=== PATIENT | male | born 1975 | race Two or more races ===

== ENCOUNTER 2025-09-22 04:41 | Emergency (ER) | payer OTHER, SELFPAY ==
[2025-09-22 04:49] VITALS: BP 132/88
[2025-09-22 04:58] VITALS: BMI 26.3
[2025-09-22 05:00] VITALS: BP 125/80
[2025-09-22 05:25] LABS: Hematocrit 42.4 % (39.0-52.0); Hemoglobin 13.9 g/dL (13.0-18.0); Mean Corp Hgb Conc. 32.8 g/dL (33.0-37.0); Mean Corpuscular Volume 88.7 fL (80.0-94.0); Nucleated Red Blood Cells % 0 % (-); Platelet Count 339 10^3/uL (130-400); Red Cell Dist. Width 12.7 % (11.5-14.5)
[2025-09-22] MEDS: TORADOL 15 MG IV (05:37)
[2025-09-22] MEDS: NSS 500 IV (05:38)
[2025-09-22 05:45] LABS: Urine Character Slightly Cloudy (Clear)
[2025-09-22 05:50] LABS: ALT (SGPT) 49 U/L (0-50); AST (SGOT) 28 U/L (17-59); Albumin 4.8 g/dl (3.5-5.0); Alkaline Phosphatase 61 U/L (38-126); Blood Urea Nitrogen 13 mg/dl (9-20); Calcium 10.0 mg/dl (8.4-10.2); Carbon Dioxide 28 mmol/L (22-30); Chloride 98 mmol/L (98-107); Estimated Creatinine Clearance 94 ml/min; Glucose 171 mg/dl (70-99); Potassium 4.4 mmol/L (3.5-5.1); Sodium 138 mmol/L (135-145); Total Protein 7.4 g/dl (6.3-8.2); eGFR > 60.00
[2025-09-22 06:00] VITALS: BP 117/81
[2025-09-22 06:19] LABS: Urine Squamous Cell 16-20 /LPF (Few)
[2025-09-22 06:20] LABS: Urine Red Blood Cell 0-2 /HPF (0-2)
--- NOTE | 2025-09-22 06:42 | ED.GENMED ---
History of Present Illness
<Debbi Fontenot PA-C - Last Filed: 09/22/25 14:18>
General
Chief Complaint: Abdominal Pain
Time Seen by Provider: 09/22/25 05:00
<Debi Padilla PA-C - Last Filed: 09/22/25 08:47>
General
Source: patient
Exam Limitations: none
Nursing documentation reviewed up to this point in time: agreed with
History of Present Illness
History of Present Illness:
Note:
CHIEF COMPLAINT(S)
Abdominal pain and pelvic discomfort.
HISTORY OF PRESENT ILLNESS
The patient is a 50-year-old male with pmh of diverticulitis, GERD, IBS, diabetes who presents with abdominal and pelvic discomfort the past few days. He notes a hx of bloating and diarrhea starting in July initially diagnosed as IBS. She
visited her primary care physician, who diagnosed and treated her for irritable bowel syndrome (IBS) due to symptoms of excessive gas and abdominal discomfort. The patient also experienced a workplace injury involving lifting a box shortly
thereafter, which temporarily resolved. The patient reports a recurrence of abdominal bloating and pressure two nights ago, with pain waking her up from sleep. The pressure is described as constant and was exacerbated by frequent bathroom visits at
work yesterday. Despite taking a dose of loperamide, symptoms persisted, specifically with pelvic muscle tension and pain. The patient reports urinary symptoms, attributed to secondary issues related to abdominal pain. She denies dysuria but
describes discomfort upon voiding and difficulty initiating a stream, which she associates with the abdominal pressure. He reports a prior history of diverticulitis 10 years ago but denies recent changes in her bowel habits aside from the episode
two nights ago. The patient has a history of taking dicyclomine for IBS, which caused constipation, prompting her to adjust her diet instead. Notably, she denies fever, vomiting, and recent diarrhea following symptom onset. There is an associated
back discomfort described as mild and recent anxiety reported surrounding the cause of her symptoms. The patient denies contact with anyone who is sick and reports no recent surgical history.
PAST MEDICAL AND SURGICAL HISTORY
No documented surgical history is noted. The patient has a past history of high blood pressure and was treated for irritable bowel syndrome.
CHRONIC MEDICAL CONDITIONS SIGNIFICANTLY AFFECTING CARE
The patient has a history of hypertension and IBS, with past instances of diverticulitis.
MEDICATIONS
The patient is currently taking lisinopril for hypertension. She has used dicyclomine previously for IBS management.
REVIEW OF SYSTEMS
- Gastrointestinal: Reports bloating, abdominal pressure, and discomfort.
- Genitourinary: Urinary discomfort, difficulty initiating a urine stream, no dysuria.
- Musculoskeletal: Some involvement with pelvic muscle tension.
- Constitutional: No fever, no vomiting. Anxiety related to uncertainty about symptoms.
PHYSICAL EXAM
General: Patient is well appearing and in no acute distress; non-toxic
Skin: Warm and dry, no rashes or lesions
Head: Normocephalic, atraumatic
Eyes: Sclera non-icteric. EOMs intact.
Cardiac: Regular rate and rhythm, no murmurs
Peripheral Vascular: No lower extremity swelling or edema
Pulm: Normal respiratory effort, no wheezes, rales, or rhonchi
Abdomen: Diffuse lower abdominal tenderness L>R, no palpable mass, normoactive bowel sounds
Neuro: CN II-XII intact, no focal neurologic deficits.
Psychiatric: Appropriate mood and affect.
PLAN
- A computed tomography (CT) scan to rule out diverticulitis flare or early appendicitis.
- Initiation of Toradol IV for pain management.
- Administration of IV fluids due to diminished oral intake and hydration status.
- Laboratory workup for comprehensive evaluation.
DIFFERENTIAL DIAGNOSIS
The Differential Diagnosis includes, in no particular order and is not limited to:
1. Diverticulitis
2. Appendicitis
3. Pelvic inflammatory disease
4. Urinary tract infection
5. Irritable bowel syndrome
6. Bowel obstruction
7. Gastroenteritis
8. Gastritis
9. Cystitis
10. Ovarian cyst
CHART REVIEW
Reviewed ER physician documentation from 12/27/2009 patient seen for chest pain and right upper quadrant pain
MDM/DISPOSITION
The patient is a 50-year-old male with pmh of diverticulitis, GERD, IBS, diabetes who presents with abdominal and pelvic discomfort the past few days. He notes a hx of bloating and diarrhea starting in July initially diagnosed as IBS. She
visited her primary care physician, who diagnosed and treated her for irritable bowel syndrome (IBS) due to symptoms of excessive gas and abdominal discomfort. He has associated diarrhea. The pain awoke him from sleep this evening. Suspect acute
diverticulitis. CT scan pending. Case signed out to Faby WILL pending CT scan. Anticipate discharge.
Past History
<Debbi Fontenot PA-C - Last Filed: 09/22/25 14:18>
Past History
ED Past Medical History: Negative Arrthythmia or CAD
ED Past Surgical History: Negative None
Social History
Tobacco: Former smoker
Alcohol: Occasional
Employment: Employed
Review of Systems
<Debi Padilla PA-C - Last Filed: 09/22/25 08:47>
Review of Systems
All Other Systems: ROS reviewed and negative except as documented in HPI and ROS
Phy Exam
<Debi Padilla PA-C - Last Filed: 09/22/25 08:47>
Physical Exam
Physical Exam:
General: Patient is well appearing and in no acute distress; non-toxic
Skin: Warm and dry, no rashes or lesions
Head: Normocephalic, atraumatic
Eyes: Sclera non-icteric. EOMs intact.
Cardiac: Regular rate and rhythm, no murmurs
Peripheral Vascular: No lower extremity swelling or edema
Pulm: Normal respiratory effort, no wheezes, rales, or rhonchi
Abdomen: Diffuse lower abdominal tenderness L>R, no palpable mass, normoactive bowel sounds
Neuro: CN II-XII intact, no focal neurologic deficits.
Psychiatric: Appropriate mood and affect.
Course
<Debbi Fontenot PA-C - Last Filed: 09/22/25 14:18>
Orders/Labs/Results
Orders:
Orders
09/22/25 05:09
Complete Blood Count/With Diff Urgent
Comprehensive Metabolic Panel Urgent
Urinalysis Reflex To Culture Urgent
Date Specimen was Collected: 09/22/25
Time Specimen was Collected: 05:04
Urine Microscopic Reflex Cult Urgent
Urine Culture Urgent
[facility] Source: U
Specimen Description:
Date Specimen was Collected: 09/22/25
Time Specimen was Collected: 05:04
09/22/25 05:22
CT Abd/pelvis W Iv Cont Urgent
Comment:
Reason For Exam: RLQ ab pain, pelvic pain
0.9% Sodium Chloride 500 ml [Nss] 500 ml IV BOLUS
Ketorolac [Toradol] 15 mg IV NOW STA
09/22/25 07:14
LevoFLOXacin [Levaquin] 750 mg PO NOW STA
MetroNIDAZOLE [Flagyl] 500 mg PO NOW STA
Abnormal Lab Results
09/22/25
05:09
WBC 17.1 H 10^3/uL
(4.8-10.8)
MCHC 32.8 L g/dL
(33.0-37.0)
Abs Immat Gran (auto) 0.1 H 10^3/uL
(0-0.05)
Absolute Neuts (auto) 12.8 H 10^3/uL
(1.4-6.5)
Absolute Monos (auto) 1.5 H 10^3/uL
(0.1-0.6)
Lymphocytes % 14.4 L %
(20.5-51.1)
Glucose 171 H mg/dl
(70-99)
Leukocyte Esterase Rfl 1+ A
(Negative)
Urine Bacteria (Reflex) Moderate A
(Negative)
Urine Albumin (Reflex) 2+ A
(Neg - Trace)
09/22/25 05:09
09/22/25 05:09
Vital Signs
Initial and Last Documented VS:
Initial Vital Signs
Temp Pulse Resp BP Pulse Ox
36.8 C 108 18 132/88 99
09/22/25 04:49 09/22/25 04:49 09/22/25 04:49 09/22/25 04:49 09/22/25 04:49
Last Documented Vital Signs
Temp Pulse Resp BP Pulse Ox
36.8 C 87 18 124/82 99
09/22/25 04:49 09/22/25 08:01 09/22/25 04:49 09/22/25 07:39 09/22/25 07:39
Rodlt;Debi Padilla PA-C - Last Filed: 09/22/25 08:47>
Orders/Labs/Results
Orders:
Orders
09/22/25 05:09
Complete Blood Count/With Diff Urgent
Comprehensive Metabolic Panel Urgent
Urinalysis Reflex To Culture Urgent
Date Specimen was Collected: 09/22/25
Time Specimen was Collected: 05:04
Urine Microscopic Reflex Cult Urgent
Urine Culture Urgent
[facility] Source: U
Specimen Description:
Date Specimen was Collected: 09/22/25
Time Specimen was Collected: 05:04
09/22/25 05:22
CT Abd/pelvis W Iv Cont Urgent
Comment:
Reason For Exam: RLQ ab pain, pelvic pain
0.9% Sodium Chloride 500 ml [Nss] 500 ml IV BOLUS
Ketorolac [Toradol] 15 mg IV NOW STA
09/22/25 07:14
LevoFLOXacin [Levaquin] 750 mg PO NOW STA
MetroNIDAZOLE [Flagyl] 500 mg PO NOW STA
Abnormal Lab Results
09/22/25
05:09
WBC 17.1 H 10^3/uL
(4.8-10.8)
MCHC 32.8 L g/dL
(33.0-37.0)
Abs Immat Gran (auto) 0.1 H 10^3/uL
(0-0.05)
Absolute Neuts (auto) 12.8 H 10^3/uL
(1.4-6.5)
Absolute Monos (auto) 1.5 H 10^3/uL
(0.1-0.6)
Lymphocytes % 14.4 L %
(20.5-51.1)
Glucose 171 H mg/dl
(70-99)
Leukocyte Esterase Rfl 1+ A
(Negative)
Urine Bacteria (Reflex) Moderate A
(Negative)
Urine Albumin (Reflex) 2+ A
(Neg - Trace)
09/22/25 05:09
09/22/25 05:09
Vital Signs
Initial and Last Documented VS:
Initial Vital Signs
Temp Pulse Resp BP Pulse Ox
36.8 C 108 18 132/88 99
09/22/25 04:49 09/22/25 04:49 09/22/25 04:49 09/22/25 04:49 09/22/25 04:49
Last Documented Vital Signs
Temp Pulse Resp BP Pulse Ox
36.8 C 87 18 124/82 99
09/22/25 04:49 09/22/25 08:01 09/22/25 04:49 09/22/25 07:39 09/22/25 07:39
<Debbi Fontenot PA-C - Last Filed: 09/22/25 14:18>
MDM/Problems Addressed
Differential Diagnosis Includes:
see MDM
MDM/Problems Addressed:
Note:
CHIEF COMPLAINT(S)
Progressive pain when breathing, worsening over the past week.
HISTORY OF PRESENT ILLNESS
This is a male 58 y/o M with history of hep C s/p treatment in remission, remote IVDA and more recent suspicious lesion liver concerning for HCC, h/o cirrhosis, here with R pleuritic pain x 1 week.
pt says he has pain with taking deep breaths but doesn't feel abdominal pain or tenderness, he has no HUGHES/exertional cp.
pt has never had PE
in past, He was treated with ledipasvir-sofosbuvir for hepatitis C and was cured. Two years ago, the patient was diagnosed with liver cancer and is not a candidate for transplantation. and at that time he stopped pursuing treatment.
He also reports smoking and has h/o divertic, but says this pain doesn't feel anything like that.
denies fever, confusion, vomiting, diarrhea, stool mitzi colored
PAST MEDICAL AND SURIGICAL HISTORY
The patient has a past medical history of diverticulitis and a history of hepatitis C, now cured. He also mentions diverticulitis leading to a severe episode almost perforating his colon two years ago but did not require surgery. He has a history of
knee surgery.
CHRONIC MEDICAL CONDITIONS SIGNIFICANTLY AFFECTING CARE
The patient�s medical history includes terminal liver cancer, diverticulitis, and previously hepatitis C infection.
SOCIAL DETERMINANTS AFFECTING HEALTH
The patient has a history of intravenous drug use at age 17, which led to acquiring hepatitis C. He currently smokes.
MEDICATIONS
The patient is on blood pressure medication, specifically lisinopril, but did not take it on the day of the visit.
REVIEW OF SYSTEMS
- Respiratory: Progressive pain with breathing over the past week.
- Gastrointestinal: Changes in stool consistency due to diverticulitis, history of hemorrhoids.
- Musculoskeletal: History of knee surgery.
PHYSICAL EXAM
GENERAL: Alert , in no apparent distress
EYE: pupils equal and reactive
NECK: Supple
ENT: o/p clr, mmm.
CARDIAC: Regular rate and rhythm .
LUNGS: Clear breath sounds bilaterally, no acute respiratory distress, no wheezes/rales/rhonchi
ABDOMEN: Soft, without focal tenderness, no r/g, no cvat, normal bowel sounds
Hepatomegaly without tenderness
NEUROLOGICAL: Alert and oriented, no focal neuro deficits
SKIN: Warm and dry, skin intact. Slightly jaundice abdomen
MUSCULOSKELETAL: No edema, well perfused. neg veronica's sign
PSYCH: Normal and appropriate interaction.
Nursing notes reviewed and vital signs reviewed. No significant tenderness upon examination.
PROBLEM LIST
Acute Problems:
- Severe pain exacerbated by deep breathing
Chronic Problems:
- Terminal liver cancer
- Diverticulitis
PLAN
The plan includes ordering a complete blood test and an ultrasound to further assess the cause of the pain and evaluate potential fluid accumulation or referred pain from the liver.
DIFFERENTIAL DIAGNOSIS
The Differential Diagnosis includes, in no particular order and is not limited to:
- Liver Metastasis
- Ascites
- Hepatomegaly
- Pleural Effusion
- Pneumonia
- Pulmonary Embolism
- Costochondritis
- Cholecystitis
- Peptic Ulcer Disease
- Gastritis
<Debi Padilla PA-C - Last Filed: 09/22/25 08:47>
MDM/Problems Addressed
Differential Diagnosis Includes:
see HPI
MDM/Problems Addressed:
see hpi
<Debbi Fontenot PA-C - Last Filed: 09/22/25 14:18>
*Pulse Oximetry
SaO2: 95
Oxygen Mode of Delivery: Room air
<Debi Padilla PA-C - Last Filed: 09/22/25 08:47>
*Pulse Oximetry
Patient hypoxic: no
*Critical Care Note
Total Time (30-74mins, 75-104mins- exclusive of procedures): Not Applicable
<Debbi Fontenot PA-C - Last Filed: 09/22/25 14:18>
Update Note
Update Note:
Received patient in signout at [address] Patient with 2 days of lower abdominal discomfort and subjective chills or fever without objective fever. Patient has had diarrhea as well which is nonbloody. He is not continuing to have diarrhea.
He has minimal abdominal tenderness on exam after Toradol and is not guarding. His white count is 17,000 with a left shift, sugar is 171, no renal dysfunction, your urinalysis looks contaminated. His CT shows uncomplicated acute sigmoid
diverticulitis. Patient is received Levaquin and Flagyl previously on his 1 other episode of diverticulitis and would like to try that. He happens to get thrush orally and generally yeast infections from antibiotics. He is asking for nystatin
oral as well as clotrimazole cream.
ED Attending Note
<Debbi Fontenot PA-C - Last Filed: 09/22/25 14:18>
-
Portions of this chart may have been created with voice recognition software.� Occasional wrong word or��sound alike� substitutions may have occurred due to the inherent limitations of voice recognition software.
Discharge Plan
Departure
Patient Disposition: Home (Routine Discharge)
Date of Disposition: 09/22/25
Time of Disposition: 07:22
Patient with high blood pressure during this ER visit?: Yes
Discharge Problem:
Diverticulitis
Instructions: Clear Liquid Diet, Diverticulitis (DC)
Prescriptions:
New
levofloxacin 750 mg tablet
750 mg PO DAILY Qty: 6 0RF
metronidazole 500 mg tablet
500 mg PO TID Qty: 20 0RF
clotrimazole 1 % cream
1 applic topical BID 7 Days Qty: 15 0RF
nystatin 100,000 unit/mL suspension
1 ml PO TID 7 Days Qty: 60 0RF
No Action
lisinopril 10 MG tablet
10 mg PO DAILY
ascorbic acid (vitamin C) [Vitamin C] 500 MG tablet,chewable
500 mg PO DAILY
esomeprazole magnesium [Nexium] 20 MG capsule,delayed release(DR/EC)
20 mg PO DAILY
Claritin
1 tab PO DAILY
MAGNESIUM
500 mg PO DAILY
oxycodone-acetaminophen 5 MG/325 MG tablet
1 tab PO Q4HPRN PRN (Reason: pain) Qty: 20 0RF
ondansetron 4 MG tablet,disintegrating
4 mg PO TIDPRN PRN (Reason: NAUSEA) Qty: 6 0RF
Referrals:
UNKNOWN - PT DOES,NOT KNOW [Family Provider]
Activity Restrictions/Additional Instructions:
YOUR CAT SCAN SHOWS MILD DIVERTICULITIS
YOU SHOULD EAT A CLEAR LIQUID DIET FOR 24-48 HOURS TO GIVE YOUR BOWELS REST.
TAKE LEVAQUIN ONCE A DAY FOR 6 DAYS STARTING TOMORROW AND FLAGYL 3 TIMES a day, you were given the first dose here so you will take 2 more doses of the Flagyl today.
YOU CAN FOLLOW UP WITH YOUR FAMILY DOCTOR WELL A GI DOCTOR
RETURN FOR: FEVER, WORSE PAIN, VOMITING, INABILITY TO TOLERATE LIQUIDS, BLOODY DIARRHEA OR ANY CONCERNS.
Interventions
Interventions:
*Risk Screen - Suicide Last Done: 09/22/25 04:49
*General Assessment Last Done: 09/22/25 04:49
*Neglect/Abuse Screening Last Done: 09/22/25 04:49
*ED- Fall Risk Assessment Last Done: 09/22/25 04:49
*ED COVID-19 Vaccine History Last Done: 09/22/25 04:49
*ED Influenza Vaccine History Last Done: 09/22/25 04:49
*Nursing Disposition Last Done: 09/22/25 08:20
[facility] Assessment Last Done: 09/22/25 05:00
Discharge Date and Time
Discharge Date/Time: 09/22/25 08:23
Print Language: KHMER
[2025-09-22] MEDS: FLAGYL 500 MG PO (07:37)
[2025-09-22] MEDS: LEVAQUIN 750 MG PO (07:37)
[2025-09-22 07:39] VITALS: BP 124/82
== END 2025-09-22 08:23 | disposition home or self-care (01) ==
LOC: EMR 04:41
PROVIDERS: EMERGENCY PHYSICIAN Emergency Medicine
DX: K57.32 Diverticulitis of large intestine without perforation or abscess without bleeding (principal); E11.9 Type 2 diabetes mellitus without complications; I10 Essential (primary) hypertension; C22.8 Malignant neoplasm of liver, primary, unspecified as to type; K74.60 Unspecified cirrhosis of liver; K58.9 Irritable bowel syndrome, unspecified; K21.9 Gastro-esophageal reflux disease without esophagitis; Z86.19 Personal history of other infectious and parasitic diseases
CPT/HCPCS: 99284; 96374; 96361; 74177; 80053; 81003; 81015; 85025; 87086; Q9967